=== PATIENT | female | born 1935 | race African-American/Black ===

== ENCOUNTER 2017-07-05 22:06 | Emergency (ER) | payer MEDICARE, MEDICAID ==
[~2017-07-05] VITALS: Ht 157.5 cm; Wt 69.1 kg
[~2017-07-05 22:06] MED LIST: ASPI81 PO; CARD240C6 PO; CLOP75 PO; HYDR-2768 PO; IMDU120T PO; LANTUSP SQ; LOTE20TA PO; METF500 PO; NITR0.4S SL; SIMV20 PO
[2017-07-05 22:07] VITALS: BP 178/78; PULSE 67; RESP 16; TEMP 98.5; O2SAT 96
--- NOTE | 2017-07-05 23:05 | PD ---
HPI Chief Complaint: Pain: Acute or Chronic Time Seen by Provider: 23:05 Travel History International Travel<30 days: No Contact w/Intl Traveler<30days: No Traveled to known affect area: No History of Present Illness HPI 81-year-old female came to the emergency room with history of right thumb swelling and pain. Patient says it's been going on for past 1 week but really painful today. No history of fever or chills. Patient is a diabetic. Bedside blood glucose was 177. Vital signs were stable. Patient is not sure how this could've started although she said she tried to cut a hangnail before the onset. PFSH Past Medical History Narrative Medical List of her past medical, surgical, social and family history reviewed from the nursing note. Hx Anticoagulant Therapy: Yes Anemia: Yes Arthritis: Yes Asthma: No Autoimmune Disease: No Blood Disorders: No Anxiety: No Depression: No Heart Rhythm Problems: No Cancer: No Cardiac Catheterization: Yes (STENT PLACEMENT) Cardiovascular Problems: Yes (CARDIAC STENTS) High Cholesterol: No Chemotherapy: No Chest Pain: Yes Congestive Heart Failure: No COPD: No Cerebrovascular Accident: No Coronary Artery Disease: Yes Diabetes: Yes Patient Takes Glucophage: No Diminished Hearing: No GERD: Yes Glaucoma: No Genitourinary: No Headaches: No Hepatitis: No Hiatal Hernia: No Heparin Induced Thrombocytopen: No Hypertension: Yes Immune Disorder: No Kidney Stones: No Neurologic: No Psychiatric: No Reproductive: No Respiratory: No Migraines: No Myocardial Infarction: Yes (X3) Radiation Therapy: No Renal Failure: No Seizures: No Sickle Cell Disease: No Sleep Apnea: No Thyroid Disease: No Ulcer: No Tetanus Vaccination: Unknown Influenza Vaccination: No Menopausal: Yes : 5 Para: 5 Past Surgical History Abdominal Surgery: No AICD: No Appendectomy: No Cardiac Surgery: Yes (CARDIAC CATH WITH STENT) Cholecystectomy: No Coronary Artery Bypass Graft: No Coronary Stent: Yes Ear Surgery: No Endocrine Surgery: No Eye Surgery: Yes (BILATERAL CATARACTS REMOVED. ) Genitourinary Surgery: No Gynecologic Surgery: Yes (ABDOMINAL HYSTERECTOMY) Hysterectomy: Yes Neurologic Surgery: No Oral Surgery: No Pacemaker: No Thoracic Surgery: No Other Surgery: Yes Family History Family Myocardial Infarction: Yes (MOTHER HAD CT AND ENLARGED HEART) Social History Alcohol Use: No Tobacco Use: No Substance Use: No Allergies-Medications (Allergen,Severity, Reaction): Coded Allergies: No Known Allergies (Verified Adverse Reaction, Unknown, 07/05/17) Comments No known drug allergies. Reported Meds & Prescriptions Reported Meds & Active Scripts Active Clindamycin (Clindamycin HCl) 150 Mg Cap 150 Mg PO Q6H 7 Days Reported Lantus (Insulin Glargine) 100 Units/Ml Inj 14 Units SQ HS Glucophage 500 mg (Metformin HCl) 500 Mg Tab 500 Mg PO DAILY Hctz (Hydrochlorothiazide) 25 Mg Tab 25 Mg PO DAILY Nitrostat (Nitroglycerin) 0.4 Mg Subl 0.4 Mg SL PRN 1 TAB SL EVERY 5 MINS X 3 PRN CHEST PAIN Aspirin 81 Mg Tab 81 Mg PO DAILY Lotensin (Benazepril HCl) 20 Mg Tab 20 Mg PO BID Cardizem Cd (Diltiazem HCl) 240 Mg Cap 240 Mg PO DAILY Plavix (Clopidogrel Bisulfate) 75 Mg Tab 75 Mg PO DAILY Imdur (Isosorbide Mononitrate) 120 Mg Tab 120 Mg PO DAILY Zocor (Simvastatin) 20 Mg Tab 20 Mg PO HS Narrative Medication List of her home medications reviewed from the nursing note. Review of Systems Except as stated in HPI: all other systems reviewed are Neg Physical Exam Narrative GENERAL: Awake, alert, looks younger than her age, mild distress SKIN: Focused skin assessment warm/dry. Right thumb radial aspect of the nail has swelling, tenderness. This is just adjacent to the nail bed HEAD: Atraumatic. Normocephalic. EYES: Pupils equal and round. No scleral icterus. No injection or drainage. ENT: No nasal bleeding or discharge. Mucous membranes pink and moist. NECK: Trachea midline. No JVD. CARDIOVASCULAR: Regular rate and rhythm. No murmur appreciated. RESPIRATORY: No accessory muscle use. Clear to auscultation. Breath sounds equal bilaterally. GASTROINTESTINAL: Abdomen soft, non-tender, nondistended. Hepatic and splenic margins not palpable. MUSCULOSKELETAL: No obvious deformities. No clubbing. No cyanosis. No edema. NEUROLOGICAL: Awake and alert. No obvious cranial nerve deficits. Motor grossly within normal limits. Normal speech. PSYCHIATRIC: Appropriate mood and affect; insight and judgment normal. Data Data Last Documented VS Vital Signs Date Time Temp Pulse Resp B/P (MAP) Pulse Ox O2 Delivery O2 Flow Rate FiO2 07/06/17 00:15 07/05/17 22:07 98.5 67 16 96 Room Air Orders Orders Lidocaine 1% Inj (50 Ml) (Xylocaine 1% I (07/05/17 23:15) Tetanus/Diphtheria Tox Adult (Tetanus/Di (07/05/17 23:15) Blood Glucose (07/05/17 23:09) Wound Culture And Gram Stain (07/05/17 23:41) Sulfamet-Trimeth Ds 800-160 Mg (Bactrim (07/06/17 00:00) Ed Discharge Order (07/05/17 23:59) Clindamycin (Cleocin) (07/06/17 00:15) [facility] Medical Decision Making Medical Screen Exam Complete: Yes Emergency Medical Condition: Yes Medical Record Reviewed: Yes Differential Diagnosis Paronychia Narrative Course 12:01 AM the paronychia was drained. Please refer to my procedure note. Patient tolerated the procedure well. She is given a dose of Bactrim and will be discharged home with instructions. Procedures Procedure Narrative Paronychia drainage: The thumb was cleaned with ChloraPrep. One percent lidocaine was used to achieve digital block. Total of 8 mL was infiltrated into the base of the thumb. Once desired anesthesia was achieved #11 scalpel blade was used to get to the radial corner of the thumbnail. Immediately pus came out. Culture was collected with swab. The medial corner of the nail was freed from the nailbed. More pus was extruded by pressure. Patient tolerated the procedure well. The and it was cleaned with Betadine and nurses applied dressing. EKG Prior to Arrival: No Diagnosis Primary Impression: Acute paronychia of right thumb Referrals: Primary Care Physician Additional Instructions: Return to the ER if the condition worsens or any other new concerns. Otherwise follow-up with your primary care next few days. Take the antibiotic as per the prescription direction. Soak the finger in Epsom salt with lukewarm water 4-5 times a day. Med/Other Pt SpecificInfo: Prescription(s) given Scripts Clindamycin (Clindamycin) 150 Mg Cap 150 MG PO Q6H for Infection for 7 Days, #28 CAP 0 Refills Prov: Marciano Wang MD 07/06/17 Disposition: 01 DISCHARGE HOME Condition: Stable Marciano Wang MD Jul 05, 2017 23:05
[2017-07-05] MEDS ORDERED: LIDOCAINE HCL 1% 50 ML VIAL INFIL ONE (23:15)
[2017-07-05] MEDS ORDERED: TETANUS/DIPHTHERIA TOXOID ADULT 0.5 ML VIAL IM ONE (23:15)
[2017-07-06] MEDS ORDERED: SULFAMETHOXAZOLE-TRIMETHOPRIM DS 800-160 MG TAB PO ONE
[2017-07-06] MEDS ORDERED: CLIN150C14 PO (00:03)
[2017-07-06] MEDS ORDERED: CLINDAMYCIN 150 MG CAP PO ONE (00:15)
== END 2017-07-06 00:19 | disposition home or self-care (01) ==
LOC: NEPD 22:06
DX: L03.011 Cellulitis of right finger (principal); B95.61 Methicillin susceptible Staphylococcus aureus infection as the cause of diseases classified elsewhere; E11.9 Type 2 diabetes mellitus without complications; I10 Essential (primary) hypertension; I25.10 Atherosclerotic heart disease of native coronary artery without angina pectoris; I25.2 Old myocardial infarction; Z23 Encounter for immunization; Z79.4 Long term (current) use of insulin
CPT/HCPCS: 10060; 86403; 87070; 87186; 90471; 90714

== ENCOUNTER 2017-12-24 21:17 | Emergency (ER) | payer MEDICARE, MEDICAID ==
[~2017-12-24 21:17] MED LIST changes: +CLIN150C14 PO
[2017-12-24 21:58] VITALS: BP 153/69; PULSE 56; RESP 16; TEMP 98.3; O2SAT 97
--- NOTE | 2017-12-24 23:30 | PD ---
HPI Chief Complaint: Oral / Dental Pain or Problem Time Seen by Provider: 23:11 Travel History International Travel<30 days: No Contact w/Intl Traveler<30days: No Traveled to known affect area: No History of Present Illness HPI Patient is a 82-year-old female who presents the emergency room with complaints of lower lip swelling. Patient reports that she had a dental procedure today which required that her tooth be numbed with lidocaine, reports that she ate right after her procedure and noticed increased swelling to her right lower lip. Patient here for evaluation of right lower lip swelling. PFSH Past Medical History Hx Anticoagulant Therapy: Yes Anemia: Yes Arthritis: Yes Asthma: No Autoimmune Disease: No Blood Disorders: No Anxiety: No Depression: No Heart Rhythm Problems: No Cancer: No Cardiac Catheterization: Yes (STENT PLACEMENT) Cardiovascular Problems: Yes (STENTS) High Cholesterol: No Chemotherapy: No Chest Pain: Yes Congestive Heart Failure: No COPD: No Cerebrovascular Accident: No Coronary Artery Disease: Yes Diabetes: Yes Diminished Hearing: No GERD: Yes Glaucoma: No Genitourinary: No Headaches: No Hepatitis: No Hiatal Hernia: No Heparin Induced Thrombocytopen: No Hypertension: Yes Immune Disorder: No Kidney Stones: No Neurologic: No Psychiatric: No Reproductive: No Respiratory: No Migraines: No Myocardial Infarction: Yes (X3) Radiation Therapy: No Renal Failure: No Seizures: No Sickle Cell Disease: No Sleep Apnea: No Thyroid Disease: No Ulcer: No Menopausal: Yes : 5 Para: 5 Past Surgical History Abdominal Surgery: No AICD: No Appendectomy: No Cardiac Surgery: Yes (CARDIAC CATH WITH STENT) Cholecystectomy: No Coronary Artery Bypass Graft: No Coronary Stent: Yes Ear Surgery: No Endocrine Surgery: No Eye Surgery: Yes (BILATERAL CATARACTS REMOVED. ) Genitourinary Surgery: No Gynecologic Surgery: Yes (ABDOMINAL HYSTERECTOMY) Hysterectomy: Yes Neurologic Surgery: No Oral Surgery: No Pacemaker: No Thoracic Surgery: No Other Surgery: Yes Social History Alcohol Use: No Tobacco Use: No Substance Use: No Allergies-Medications (Allergen,Severity, Reaction): Coded Allergies: No Known Allergies (Verified Adverse Reaction, Unknown, 12/24/17) Reported Meds & Prescriptions Reported Meds & Active Scripts Active Clindamycin (Clindamycin HCl) 150 Mg Cap 150 Mg PO Q6H 7 Days Reported Lantus (Insulin Glargine) 100 Units/Ml Inj 14 Units SQ HS Glucophage 500 mg (Metformin HCl) 500 Mg Tab 500 Mg PO DAILY Hctz (Hydrochlorothiazide) 25 Mg Tab 25 Mg PO DAILY Nitrostat (Nitroglycerin) 0.4 Mg Subl 0.4 Mg SL PRN 1 TAB SL EVERY 5 MINS X 3 PRN CHEST PAIN Aspirin 81 Mg Tab 81 Mg PO DAILY Lotensin (Benazepril HCl) 20 Mg Tab 20 Mg PO BID Cardizem Cd (Diltiazem HCl) 240 Mg Cap 240 Mg PO DAILY Plavix (Clopidogrel Bisulfate) 75 Mg Tab 75 Mg PO DAILY Imdur (Isosorbide Mononitrate) 120 Mg Tab 120 Mg PO DAILY Zocor (Simvastatin) 20 Mg Tab 20 Mg PO HS Review of Systems General / Constitutional: No: Fever Eyes: No: Visual changes HENT: Positive: Other (right lower lip swelling), No: Headaches Cardiovascular: No: Chest Pain or Discomfort Respiratory: No: Shortness of Breath Gastrointestinal: No: Abdominal Pain Genitourinary: No: Dysuria Musculoskeletal: No: Pain Skin: No Rash Neurologic: No: Weakness Psychiatric: No: Depression Endocrine: No: Polydipsia Hematologic/Lymphatic: No: Easy Bruising Physical Exam Narrative GENERAL: Well-nourished, well-developed patient. SKIN: Focused skin assessment warm/dry. HEAD: Normocephalic. EYES: No scleral icterus. No injection or drainage. MOUTH: patient with swelling to right lower lip, she does have bite rodriguez to her right inner mucosa of her mouth - there is cessation of bleeding at this time. NECK: Supple, trachea midline. No JVD or lymphadenopathy. CARDIOVASCULAR: Regular rate and rhythm without murmurs, gallops, or rubs. RESPIRATORY: Breath sounds equal bilaterally. No accessory muscle use. GASTROINTESTINAL: Abdomen soft, non-tender, nondistended. MUSCULOSKELETAL: No cyanosis, or edema. Data Data Last Documented VS Vital Signs Date Time Temp Pulse Resp B/P (MAP) Pulse Ox O2 Delivery O2 Flow Rate FiO2 12/24/17 21:58 98.3 56 16 153/69 (97) 97 [facility] Medical Decision Making Medical Screen Exam Complete: Yes Emergency Medical Condition: Yes Medical Record Reviewed: Yes Interpretation(s) Vital Signs Date Time Temp Pulse Resp B/P (MAP) Pulse Ox O2 Delivery O2 Flow Rate FiO2 12/24/17 21:58 98.3 56 16 153/69 (97) 97 Differential Diagnosis Angioedema, medication reaction, trauma Narrative Course 82-year-old female who had Novocaine injected prior to a dental procedure today , patient went home and ate a meal, patient with swelling to right lower lip. Patient is on IFTIKHAR inhibitor which could cause lower lip swelling/angioedema but this is probably not the case as she does appear to have obvious trauma to her right lower inner lip mucosal as patient most likely bit her lower lip while eating while numb on novacaine. Instructed patient that the next time she has novocaine, she should wait until the numbing solution wears off before she has a meal. Instructed patient to place ice pack to lower lip. Patient will return to ER if symptoms do not resolve. Diagnosis Primary Impression: Biting of oral mucosa Additional Instructions: Place ice pack to lower lip Return to ER if symptoms worsen or progress Return to ER as needed Disposition: 01 DISCHARGE HOME Condition: Stable Helen Baird DO Dec 24, 2017 23:30
== END 2017-12-24 23:52 | disposition home or self-care (01) ==
LOC: NEPD 21:17
DX: K13.1 Cheek and lip biting (principal); E11.9 Type 2 diabetes mellitus without complications; I10 Essential (primary) hypertension; I25.10 Atherosclerotic heart disease of native coronary artery without angina pectoris; Z79.4 Long term (current) use of insulin
CPT/HCPCS: 99282

== ENCOUNTER 2018-09-14 21:42 | Inpatient (IN) ==
[2018-09-14] MEDS ORDERED: Labetalol HCl Inj 100 MG/20 ML Vial IV.PUSH ONE (22:24)
--- NOTE | 2018-09-14 22:38 | ED ---
HPI General Chief complaint: Chest Pain Stated complaint: Generalized pain Time Seen by Provider: 09/14/18 22:13 Source: patient Limitations: no limitations History of Present Illness HPI narrative: The patient is an 83 year old female who presents to the [facility] emergency department with a history of a few hours ago after eating dinner having onset of midepigastric abdominal pain, abdominal bloating, and diffuse back pain. She reports having associated shortness of breath that comes and goes. She reports that the pain is constant in her abdomen and back although it waxes and wanes in severity. She reports having nausea without vomiting. She denies having any diaphoresis. She does report having history of coronary artery disease and has had 2 stents placed previously. She reports that her cone sewer is Dr. Irene Watson. She reports that she does take a low- dose aspirin daily. She denies being on any other blood thinners. The patient arrives with an extremely high blood pressure at 259/132. She reports that both of her blood pressure medications were discontinued 5 months ago. She reports that she stopped 1 due to a reaction where she developed swelling in her mouth. She reports that the other blood pressure medication was stopped by her when she developed "fluttering" in her heart. She has not been back to see her primary care physician regarding her blood pressure since stopping the medications. The stress test done approximately 6-7 months ago. The patient reports that she has had a hysterectomy, however she continues to have her gallbladder and appendix. She denies having any diarrhea. She reports that her last bowel movement was today. She reports that she did start a stool softener yesterday related to hard stools over the last week. She denies having any urinary symptoms. On review of systems otherwise, patient denies having any known recent fevers, cough, congestion, neck pain, chest pain, or neurologic symptoms. Related Data Home Medications Medication Instructions Recorded Confirmed Isosorbide 120 mg PO DAILY 09/14/18 ascorbic acid (vitamin C) [Vitamin 500 mg PO DAILY 09/14/18 09/14/18 C] aspirin 81 mg PO DAILY 09/14/18 09/14/18 clopidogrel 75 mg PO DAILY 09/14/18 09/14/18 diltiazem HCl [Matzim [place]] 240 mg PO DAILY 09/14/18 09/14/18 simvastatin 20 mg PO QPM 09/14/18 09/14/18 zolpidem 5 mg PO DAILY 09/14/18 09/14/18 Allergies Allergy/AdvReac Type Severity Reaction Status Date / Time No Known Allergies Allergy Verified 09/14/18 21:49 Review of Systems ROS: all other systems reviewed are negative PMFSH History History Provided By: Patient Medical History Medical History Diabetes (Acute) H/O: hysterectomy (Acute) Hypertension (Acute) Surgical History Surgical History H/O heart artery stent (Acute) Social History Social History Substance History: No History of Abuse Second Hand Smoke Exposure: No Smoking Status: Never smoker How Often Do You Have a Drink Containing Alcohol: Never Recent Travel in [facility] within the Last 8 Weeks: No Recent Out of Country Travel within the Last 8 Weeks: No Exam Const General: cooperative and acute distress (Uncomfortable appearing on my arrival to the room, frequently swallowing reporting nausea.) Nutritional Appearance: well nourished Orientation: alert, awake and oriented x3 HENMT Head: normocephalic and atraumatic Nose: no nasal discharge and no epistaxis Mouth: moist mucous membranes Throat: posterior oropharynx normal and uvula midline Eyes Sclera: normal sclerae Pupils: PERRL Neck Neck: no meningeal signs, trachea midline and no JVD Resp Effort & Inspection: no use of accessory muscles Auscultation: clear to auscultation bilaterally, no rales, no rhonchi and no wheezes Cardio Rate: regular rate Rhythm: regular rhythm Heart Sounds: no murmurs GI Inspection: non-distended Palpation: soft, no hepatosplenomegaly, no guarding, not rigid and nontender Auscultation: normal bowel sounds Back/Spine/Pelvis Back: no CVA tenderness Skin General: dry skin (warm) Neuro General: alert, awake, oriented x3 and other (Grossly nonfocal) Speech: speech normal Motor: no movement abnormalities noted Extrem General: normal to inspection (2+ pulses in all 4 extremities.), no calf tenderness, no clubbing, no cyanosis and no edema Psych Mood: congruent mood Affect: normal affect Judgment: judgment good Course Initial Documented Vital Signs Temperature 98.3 F 09/14/18 21:49 Pulse Rate 77 09/14/18 21:49 Respiratory Rate 29 H 09/14/18 21:49 Blood Pressure 243/114 H 09/14/18 21:49 Pulse Oximetry 99 09/14/18 21:49 Last Documented Vital Signs Temperature 98.3 F 09/14/18 21:49 Pulse Rate 79 09/15/18 03:34 Respiratory Rate 21 09/15/18 03:34 Blood Pressure 143/65 H 09/15/18 03:34 Pulse Oximetry 96 09/15/18 03:34 Medical Decision Making MDM Narrative Medical decision making narrative: During the course of the patient's emergency department visit, the patient's history, examination, and differential diagnosis were reviewed with the patient. The patient was placed on a desk monitor with oximetry and frequent blood pressure monitoring. The patient had IV access obtained and blood work sent for analysis. A diagnostic evaluation was started regarding the patient's abdominal pain and back pain associated with hypertension. The patient was initially provided labetalol 10 mg IV, nitroglycerin sublingual every 5 minutes x3 as needed chest pain or continued hypertension, nitroglycerin 1 inch to the chest wall. The patient was given Zofran 4 mg IV for nausea. The patient's diagnostic studies are remarkable for aCBC that is within normal limits, PT PTT within normal limits, d-dimer is elevated at 1.17, chemistries remarkable for creatinine 1.12, GFR 56, glucose 183, alkaline phosphatase 139, cardiac enzymes within normal limits, BNP within normal limits, total protein 8.3, lipase 147. The patient had a chest x-ray done that shows linear scarring or atelectasis of the lung bases, no effusion. A CT a of the thoracic abdominal aorta revealed no evidence of thoracic or abdominal aortic aneurysm or dissection, right basilar infiltrate noted, likely atelectasis, extensive diverticulosis without diverticulitis, gallbladder is mildly dilated and contains stones, multiple hepatic low densities that are likely benign, large hiatal hernia. The patient was provided famotidine 20 mg IV. The patient continued to be hypertensive and was started on Cardene as a drip. The patient's case including history, pertinent physical examination findings, and laboratory studies were discussed with Dr. Maurice. It was agreed that the patient would be admitted to the hospitalist service. The patient's results were discussed with the patient, including the plan of care. I explained that further testing and/ or monitoring is indicated based on the patient's history, examination, and/ or laboratory findings. Therefore, I recommended admission for additional evaluation. The patient expressed understanding and was agreeable with this plan. The patient was admitted to the hospital in stable condition and sent to a bed under the care of the [facility] service. Medical Screen Exam Complete: Yes Emergency Medical Condition: Yes Differential Diagnosis Differential Diagnosis: Aortic dissection, versus acute coronary syndrome, versus pancreatitis, versus acute cholecystitis Medical Records Medical records reviewed: Yes I reviewed the patient's medical records. Lab Data Lab results reviewed: Yes I reviewed the patient's lab results. Result diagrams: 09/14/18 22:23 09/14/18 22:23 Lab Results 09/14/18 09/14/18 09/14/18 Range/Units 22:23 22:23 22:23 WBC 6.1 (4.0-11.0) th/mm3 RBC 4.79 (4.00-5.30) mil/mm3 Hgb 14.9 (11.6-15.3) gm/dL Hct 42.9 (35.0-46.0) % MCV 89.5 (80.0-100.0) fL MCH 31.2 (27.0-34.0) pg MCHC 34.8 (32.0-36.0) % RDW 14.8 (11.6-17.2) % Plt Count 234 (150-450) th/mm3 MPV 8.1 (7.0-11.0) fL Neut % (Auto) 48.1 (16.0-70.0) % Lymph % (Auto) 43.9 (9.0-44.0) % Blanco % (Auto) 6.5 (0.0-8.0) % Eos % (Auto) 1.0 (0.0-4.0) % Baso % (Auto) 0.5 (0.0-2.0) % Neut # (Auto) 3.0 (1.8-7.7) th/mm3 Lymph # (Auto) 2.7 (1.0-4.8) th/mm3 Blanco # (Auto) 0.4 (0.0-0.9) th/mm3 Eos # (Auto) 0.1 (0.0-0.4) th/mm3 Baso # (Auto) 0.0 (0.0-0.2) th/mm3 WBC Differential . Differential Comment Auto diff final PT (9.8-11.6) sec INR Ratio APTT (23.4-31.7) sec D-Dimer Quant (PE/DVT) (0.00-0.50) mg/L FEU Sodium 138 (136-145) meq/L Potassium 3.9 (3.5-5.1) meq/L Chloride 104 (98-107) meq/L Carbon Dioxide 27.1 (21.0-32.0) meq/L Anion Gap 7 (5-15) meq/L BUN 15 (7-18) mg/dL Creatinine 1.12 H (0.50-1.00) mg/dL Estimated GFR 56 L (>89) mL/min Random Glucose 183 H (74-106) mg/dL Calcium 9.5 (8.5-10.1) mg/dL Magnesium 2.3 (1.5-2.5) mg/dL Total Bilirubin 0.3 (0.2-1.0) mg/dL AST 23 (15-37) U/L ALT 22 (10-53) U/L Alkaline Phosphatase 139 H (45-117) U/L Total Creatine Kinase 133 (26-192) U/L CK-MB (CK-2) 1.5 (0.5-3.6) ng/mL Troponin I Less than 0.02 L (0.02-0.05) ng/mL B-Natriuretic Peptide 31 (0-100) pg/mL Total Protein 8.3 H (6.4-8.2) g/dL Albumin 4.0 (3.4-5.0) g/dL Lipase 147 (73-393) U/L 09/14/18 09/15/18 Range/Units 22:23 02:58 WBC (4.0-11.0) th/mm3 RBC (4.00-5.30) mil/mm3 Hgb (11.6-15.3) gm/dL Hct (35.0-46.0) % MCV (80.0-100.0) fL MCH (27.0-34.0) pg MCHC (32.0-36.0) % RDW (11.6-17.2) % Plt Count (150-450) th/mm3 MPV (7.0-11.0) fL Neut % (Auto) (16.0-70.0) % Lymph % (Auto) (9.0-44.0) % Blanco % (Auto) (0.0-8.0) % Eos % (Auto) (0.0-4.0) % Baso % (Auto) (0.0-2.0) % Neut # (Auto) (1.8-7.7) th/mm3 Lymph # (Auto) (1.0-4.8) th/mm3 Blanco # (Auto) (0.0-0.9) th/mm3 Eos # (Auto) (0.0-0.4) th/mm3 Baso # (Auto) (0.0-0.2) th/mm3 WBC Differential Differential Comment PT 10.0 (9.8-11.6) sec INR 1.0 Ratio APTT 25.7 (23.4-31.7) sec D-Dimer Quant (PE/DVT) 1.17 H (0.00-0.50) mg/L FEU Sodium (136-145) meq/L Potassium (3.5-5.1) meq/L Chloride (98-107) meq/L Carbon Dioxide (21.0-32.0) meq/L Anion Gap (5-15) meq/L BUN (7-18) mg/dL Creatinine (0.50-1.00) mg/dL Estimated GFR (>89) mL/min Random Glucose (74-106) mg/dL Calcium (8.5-10.1) mg/dL Magnesium (1.5-2.5) mg/dL Total Bilirubin (0.2-1.0) mg/dL AST (15-37) U/L ALT (10-53) U/L Alkaline Phosphatase (45-117) U/L Total Creatine Kinase (26-192) U/L CK-MB (CK-2) (0.5-3.6) ng/mL Troponin I Less than 0.02 L (0.02-0.05) ng/mL B-Natriuretic Peptide (0-100) pg/mL Total Protein (6.4-8.2) g/dL Albumin (3.4-5.0) g/dL Lipase (73-393) U/L Imaging Data Radiologist's impression: Chest X-Ray 09/14/18 22:16 CONCLUSION: Linear scarring or atelectasis at the lung bases. No effusion. Thoracic Aorta CT 09/14/18 22:16 CONCLUSION: 1. Right basilar infiltrate. 2. No thoracic or abdominal aortic aneurysm/dissection. 3. Extensive diverticulosis without diverticulitis. 4. Gallbladder is mildly dilated and contains gallstones. 5. Multiple hepatic low densities likely benign. 6. Large hiatal hernia. Gallbladder Ultrasound 09/15/18 01:28 CONCLUSION: 1. Cholelithiasis, gallbladder sludge and pericholecystic fluid. 2. Multiple hepatic cysts. ECG Data Attestation: I personally reviewed and interpreted this ECG as follows: Interpretation: The patient had an EKG done on arrival. The patient's EKG reveals a sinus rhythm heart rate of 69, left ventricular hypertrophy is noted. Nonspecific ST-T wave abnormalities are noted. T waves are inverted in lead I , aVL, V4, V5, V6. No acute ST segment elevation. Discharge Plan Discharge Disposition Patient Disposition: ED Admit(ED Internal Use Only) Discharge Order Discharge Orders: ED Use Only Admit Order (Routine); Ordered 09/15/18 Ordered By: Ruma Yung Discharge Details Diagnosis: Hypertensive urgency, Chest pain, rule out acute myocardial infarction Physicians Team ED Provider: Ruma Yung Primary Care Provider: SURI Robins Attending Provider: Carolyn Pelletier Other Providers: [facility],Insurance Status ED Status: Admitted Patient
[2018-09-14] MEDS ORDERED: Labetalol HCl Inj 20 MG/4 ML Vial ONE (22:40)
[2018-09-14] MEDS ORDERED: Labetalol HCl Inj 20 MG/4 ML Vial IV.PUSH ONE (22:45)
--- NOTE | 2018-09-14 22:46 | XR ---
EXAM DATE: 09/14/2018 10:37 PM EST AGE/SEX: 83 years / Female INDICATIONS: Chest pain CLINICAL DATA: This is the patient's initial encounter. Patient reports that signs and symptoms have been present for 1 day and indicates a pain score of 0/10. MEDICAL/SURGICAL HISTORY: Diabetes mellitus type II. Cardiovascular disease. Carotid stent. COMPARISON: [facility] – [place], CHEST SINGLE AP, 12/29/2015. . FINDINGS: There is linear atelectasis or scarring at the lung bases. No effusion. No pneumothorax. Heart size w ithin normal limits. CONCLUSION: Linear scarring or atelectasis at the lung bases. No effusion. Electronically signed by: Bishnu Pritchett MD Board Certified Radiologist 09/14/2018 10:44 PM EST
[2018-09-14 22:49] LABS: Baso % (Auto) 0.5 % (0.0-2.0); Eos # (Auto) 0.1 th/mm3 (0.0-0.4); Hematocrit 42.9 % (35.0-46.0); Hemoglobin 14.9 gm/dL (11.6-15.3); Lymph # (Auto) 2.7 th/mm3 (1.0-4.8); Lymph % (Auto) 43.9 % (9.0-44.0); Mean Corpuscular HGB Conc 34.8 % (32.0-36.0); Mean Corpuscular Hemoglobin 31.2 pg (27.0-34.0); Mean Corpuscular Volume 89.5 fL (80.0-100.0); Mean Platelet Volume 8.1 fL (7.0-11.0); Mono # (Auto) 0.4 th/mm3 (0.0-0.9); Mono % (Auto) 6.5 % (0.0-8.0); Neut % (Auto) 48.1 % (16.0-70.0); Platelet Count 234 th/mm3 (150-450); Red Blood Count 4.79 mil/mm3 (4.00-5.30); Red Cell Distribution Width 14.8 % (11.6-17.2); White Blood Count 6.1 th/mm3 (4.0-11.0)
[2018-09-14 23:06] LABS: Activated Partial Thrombo Time 25.7 sec (23.4-31.7)
[2018-09-14 23:10] LABS: Alanine Aminotransferase 22 U/L (10-53); Alkaline Phosphatase 139 U/L (45-117); Anion Gap 7 meq/L (5-15); Aspartate Aminotransferase 23 U/L (15-37); Blood Urea Nitrogen 15 mg/dL (7-18); Calcium 9.5 mg/dL (8.5-10.1); Carbon Dioxide 27.1 meq/L (21.0-32.0); Chloride 104 meq/L (98-107); Creatine Kinase 133 U/L (26-192); Glomerular Filtration Rate 56 mL/min (>89); Glucose,Random 183 mg/dL (74-106); Lipase 147 U/L (73-393); Magnesium 2.3 mg/dL (1.5-2.5); Sodium 138 meq/L (136-145); Total Protein 8.3 g/dL (6.4-8.2)
[2018-09-14 23:14] LABS: D-Dimer 1.17 mg/L FEU (0.00-0.50)
[2018-09-14 23:19] LABS: Potassium 3.9 meq/L (3.5-5.1)
[2018-09-14 23:31] LABS: Creatine Kinase MB 1.5 ng/mL (0.5-3.6)
[2018-09-15] MEDS ORDERED: niCARdipine Inj 25 MG in Sodium Chlor 0.9% Inj 240 ML IV.CONT PRN (00:01)
--- NOTE | 2018-09-15 00:35 | CT ---
EXAM DATE: 09/15/2018 12:23 AM EST AGE/SEX: 83 years / Female INDICATIONS: Chest and abdominal pain with nausea. CLINICAL DATA: This is the patient's initial encounter. Patient reports that signs and symptoms have been present for 1 day and indicates a pain score of 10/10. MEDICAL/SURGICAL HISTORY: Cardiovascular disease. Diabetes. Hypertension. Coronary artery stent. Hysterectomy. RADIATION DOSE: 7.88 CTDI (mGy) COMPARISON: No prior exams available for comparison. TECHNIQUE: Volumetric scanning was performed using a multi-row detector CT scanner during bolus infu alphonse of 98 ml Omnipaque 350 (iohexol) nonionic water-soluble contrast as a single exam dose. The da ta was post processed with a variety of visualization algorithms including full volume maximum intens ity projection, multi-planar sliding thin slab reformation, curved planar reformation, and surface re ndering techniques. Using automated exposure control and adjustment of the mA and/or kV according to patient size, radiation dose was kept as low as reasonably achievable to obtain optimal diagnostic q uality images. DICOM format image data is available electronically for review and comparison. FINDINGS: Lungs: There is right basilar infiltrate. No concerning pulmonary nodule is visualized. No pleural fluid is present. Mediastinum: No abnormally enlarged lymph nodes by CT criteria. No axillary or hilar abnormalities a re identified. Heterogeneous thyroid gland. Abdomen: The spleen are free of focal defects. Multiple hepatic low densities. The pancreas demonstr ate no abnormality. Gallbladder is dilated and contains small gallstones. The adrenal glands are norm al. The kidneys demonstrate no evidence of solid renal mass or hydronephrosis. No free fluid or abdom inal masses are identified. No para-aortic adenopathy is seen. Large hiatal hernia. Extensive diverti culosis of the colon. Pelvis: No evidence of free fluid or pelvic mass. No abnormally enlarged inguinal or retroperitoneal lymph nodes are present. The bladder is unremarkable. Thoracic Aorta: The thoracic aortic root is normal with normal branching of the great vessels. Ther e is no evidence of aneurysm or dissection. Abdominal Aorta: The aorta is normal in caliber without aneurysm or dissection. The renal arteries are patent bilaterally. The proximal celiac and superior mesenteric arteries are patent and normal i n diameter. Pelvic Vessels: The internal iliac and external iliac vessels are patent without aneurysm or stenosi s. CONCLUSION: 1. Right basilar infiltrate. 2. No thoracic or abdominal aortic aneurysm/dissection. 3. Extensive diverticulosis without diverticulitis. 4. Gallbladder is mildly dilated and contains gallstones. 5. Multiple hepatic low densities likely benign. 6. Large hiatal hernia. Electronically signed by: Vj Smith MD Board Certified Radiologist 09/15/2018 12:34 AM EST
[2018-09-15] MEDS ORDERED: Famotidine PF Inj 20 MG/2 ML Vial IV.PUSH ONE (01:28)
[2018-09-15] MEDS ORDERED: Acetaminophen 325 MG Tablet PO PRN (01:41)
[2018-09-15] MEDS ORDERED: Bisacodyl 10 MG Supp RECTAL PRN (01:41)
--- NOTE | 2018-09-15 02:54 | US ---
EXAM DATE: 09/15/2018 2:48 AM EST AGE/SEX: 83 years / Female INDICATIONS: Epigastric pain with nausea. Follow up gallstones visualized on CTA Thoracic/Abdominal Aorta with contrast. CLINICAL DATA: This is the patient's initial encounter. Patient reports that signs and symptoms have been present for 1 day and indicates a pain score of 10/10. MEDICAL/SURGICAL HISTORY: Diabetes. Hypertension. Cardiovascular disease. Coronary artery manpreet nt. Hysterectomy. COMPARISON: [facility], CTA THOR ABD AORTA W CONTRAST W 3D, 09/14/2018. . MEASUREMENTS: Liver:__ 11.8 cm. Common Bile Duct:__ 11mm. FINDINGS: Liver: Normal echogenicity. Multiple cysts are seen. Portal Vein: Hepatopedal flow seen in portal vein. Common Duct: No intraluminal mass or stone visualized. Gallbladder: Gallstones and sludge. Pericholecystic fluid present. Negative sonographic Renee's sig n. Pancreas: The visualized portions are within normal limits Right Kidney: Normal echogenicity and cortical thickness. No mass or hydronephrosis. Other: None. CONCLUSION: 1. Cholelithiasis, gallbladder sludge and pericholecystic fluid. 2. Multiple hepatic cysts. Electronically signed by: Vj Smith MD Board Certified Radiologist 09/15/2018 2:53 AM EST
--- NOTE | 2018-09-15 09:18 | NM ---
EXAM DATE: 09/15/2018 9:11 AM EST AGE/SEX: 83 years / Female INDICATIONS: Dyspnea. CLINICAL DATA: This is the patient's initial encounter. Patient reports that signs and symptoms have been present for 1 day and indicates a pain score of 5/10. MEDICAL/SURGICAL HISTORY: Diabetes mellitus type II. Hypertension. Coronary artery stent. COMPARISON: [facility], CHEST 1V SINGLE AP, 09/14/2018. . DOSE: 0.5 mCi Tc99m DTPA aerosol 8.1 mCi Tc99m MAA IV TECHNIQUE: Following five minutes of tidal breathing of DTPA aerosol, planar images of the lungs wer e performed in eight projections. The patient was then injected with MAA, and eight-view perfusion s can was performed. FINDINGS: There is a heterogeneous pattern of aerosol delivery to the periphery of both lungs with patchy subse gmental defects most notably in the left upper and lower lobes. The perfusion lung scan demonstrates a homogenous pattern of uptake in both lungs. No segmental or s ubsegmental defects are seen. CONCLUSION: 1. Very low probability VQ scan. Electronically signed by: Jerald Duggan MD Board Certified Radiologist 09/15/2018 9:17 AM EST
[2018-09-15] MEDS: Enoxaparin Inj 30 MG/0.3 ML Syringe SQ SCH (10:12)
[2018-09-15] MEDS: dilTIAZem CD 240 MG Capsule PO SCH (10:12)
[2018-09-15] MEDS: Isosorbide Mononitrate 60 MG ER 24HR Tablet (Imdur) PO SCH (10:50)
--- NOTE | 2018-09-15 11:10 | P.HPIM ---
History of Present Illness Primary Care Physician: [facility] – [place] History of Present Illness: 83 yo F with h/o CAD,HTN, who presented with abdominal and back pain which started after eating dinner. Pain was said to be in the epigastric area, sharp, associated with bloating, no known relieving factors. She vomited a few times, but did not have any diarrhea. She had taken a stool softener yesterday because she had not had a bowel movement, but managed to move after that. No chest pain or shortness of breath. No leg swelling. No dizziness or lightheadedness. No headaches. ROS is negative except as stated above. ER notes indicate bp meds were stopped 5 months ago, on interviewing patient, says she takes all her medication including BP medication. She had a list which she showed to me. On presentation was noted to be have very high BP 259/132, CT chest/abdopelvis r /o dissection/aneurism, showed a right basilar infiltrate, diverticulosis, mildly dilated gall bladder with gall stones, multiple hepatic low densities likely benign. Patient was initially on a Nicardipin drip, BP trends improved. Her home medication have been resumed. Inpatient Certification Inpatient Certification: I certify that the inpatient services were ordered in accordance with Medicare regulations governing the order. This includes certification that hospital inpatient services are reasonable and necessary and in the case of services not specified as inpatient-only under 42 CFR 419.22(n), that they are appropriately provided as inpatient services in accordance to with the 2-midnight benchmark under 43 CFR 412.3(e) Estimated Total Length of Stay (Days): 2 Plans for Post Hospital Care: Home Review of Systems Review of Systems: all other systems reviewed are negative [facility] Medical History Medical History Diabetes (Acute) H/O: hysterectomy (Acute) Hypertension (Acute) Surgical History Surgical History H/O heart artery stent (Acute) Social History Social History Substance History: No History of Abuse Second Hand Smoke Exposure: No Smoking Status: Never smoker How Often Do You Have a Drink Containing Alcohol: Never Recent Travel in [place] within the Last 8 Weeks: No Recent Out of Country Travel within the Last 8 Weeks: No Immunization History Tetanus Immunization: >5 Years Medications and Allergies Allergies Allergy/AdvReac Type Severity Reaction Status Date / Time No Known Allergies Allergy Verified 09/14/18 21:49 Home Medications Medication Instructions Recorded Confirmed Type Isosorbide 120 mg PO DAILY 09/14/18 History ascorbic acid (vitamin C) [Vitamin 500 mg PO DAILY 09/14/18 09/14/18 History C] aspirin 81 mg PO DAILY 09/14/18 09/14/18 History clopidogrel 75 mg PO DAILY 09/14/18 09/14/18 History diltiazem HCl [Matzim LA] 240 mg PO DAILY 09/14/18 09/14/18 History simvastatin 20 mg PO QPM 09/14/18 09/14/18 History zolpidem 5 mg PO DAILY 09/14/18 09/14/18 History Active Medications: Active Medications Acetaminophen (Tylenol) 650 mg PO Q4H PRN PRN Reason: Temp > 100.4 Al Hydroxide/Mg Hydroxide (Milk Of Magnesia Liq) 30 ml PO Q12H PRN PRN Reason: Mild Constipation Aspirin (Aspirin Chew) 81 mg PO DAILY [facility] Last Admin: 09/15/18 10:11 Dose: 81 mg Bisacodyl (Dulcolax Supp) 10 mg RECTAL DAILY PRN PRN Reason: SEVERE CONSITIPATION Clopidogrel Bisulfate (Plavix) 75 mg PO DAILY [facility] Last Admin: 09/15/18 10:13 Dose: 75 mg Diltiazem HCl (Cardizem Cd 24hr) 240 mg PO DAILY [facility] Last Admin: 09/15/18 10:12 Dose: 240 mg Enoxaparin Sodium (Lovenox Inj) 30 mg SQ Q24H [facility] Last Admin: 09/15/18 10:12 Dose: 30 mg Nicardipine HCl 25 mg/ Sodium (Chloride) 250 mls @ 50 mls/hr IV.CONT TITRATE PRN; Protocol PRN Reason: Per Protocol Last Titration: 09/15/18 05:02 Dose: Infused Isosorbide Mononitrate (Imdur) 120 mg PO DAILY [facility] Last Admin: 09/15/18 10:50 Dose: 120 mg Lactulose (Lactulose Liq) 30 ml PO DAILY PRN PRN Reason: SEVERE CONSITIPATION Ondansetron HCl (Zofran Inj) 4 mg IV.PUSH Q6H PRN PRN Reason: NAUSEA OR VOMITING Pravastatin Sodium (Pravachol) 40 mg PO HS [facility] Sennosides (Senokot) 17.2 mg PO Q12H PRN PRN Reason: Moderate Constipation Sodium Chloride (Ns Flush) 2 ml IV.FLUSH UNSCH PRN PRN Reason: FLUSH AFTER USING IV ACCESS Sodium Chloride (Ns Flush) 2 ml IV.FLUSH BID [facility] Last Admin: 09/15/18 10:13 Dose: 2 ml Sodium Chloride (Ns Flush) 2 ml IV.FLUSH PRN PRN PRN Reason: FLUSH AFTER USING IV ACCESS Physical Exam Vital signs: Vital Signs 09/14/18 21:49 09/14/18 22:34 09/14/18 22:46 Temperature 98.3 F Pulse Rate 77 72 Respiratory Rate 29 H 18 Blood Pressure 243/114 H 197/91 H Pulse Oximetry 99 98 97 09/14/18 23:02 09/15/18 00:20 09/15/18 00:54 Temperature Pulse Rate 74 74 80 Respiratory Rate 18 18 19 Blood Pressure 220/97 H 210/91 H 167/72 H Pulse Oximetry 99 97 100 09/15/18 02:01 09/15/18 03:34 09/15/18 07:00 Temperature Pulse Rate 77 79 76 Respiratory Rate 20 21 25 H Blood Pressure 154/70 H 143/65 H 172/81 H Pulse Oximetry 96 99 09/15/18 08:00 09/15/18 09:40 09/15/18 10:00 Temperature Pulse Rate 74 79 83 Respiratory Rate 22 18 16 Blood Pressure 164/77 H 175/80 H 153/118 H Pulse Oximetry 100 100 Intake & Output 09/14/18 09/15/18 09/15/18 18:59 06:59 18:59 Intake Total 250 / 250 Balance 250 / 250 Weight 68.039 kg Intake: IV 250 / 250 Cardene Inj 25 MG In NS Inj 240 250 / 250 ML @ 5 MG/HR 50 mls/hr IV.CONT TITRATE PRN Rx#:[id number] Narrative: GENERAL: elderly woman, not in distress. HEENT:not pale,anicteric NECK:no JVD CARDIOVASCULAR: Regular rate and rhythm,RUSB soft 2/6 systolic murmur, gallops, or rubs. RESPIRATORY: Clear to auscultation. Breath sounds equal bilaterally. No wheezes , rales, or rhonchi. GASTROINTESTINAL: Abdomen soft, non-tender, nondistended. Normal active bowel sounds MUSCULOSKELETAL: Extremities without clubbing, cyanosis, or edema. NEURO: Alert & Oriented x4 to person, place, time, situation. Moves all ext x4 Results Labs CBC & Chem 7: 09/14/18 22:23 09/16/18 04:42 Imaging Impressions Chest X-Ray 09/14/18 22:16 CONCLUSION: Linear scarring or atelectasis at the lung bases. No effusion. Thoracic Aorta CT 09/14/18 22:16 CONCLUSION: 1. Right basilar infiltrate. 2. No thoracic or abdominal aortic aneurysm/dissection. 3. Extensive diverticulosis without diverticulitis. 4. Gallbladder is mildly dilated and contains gallstones. 5. Multiple hepatic low densities likely benign. 6. Large hiatal hernia. Gallbladder Ultrasound 09/15/18 01:28 CONCLUSION: 1. Cholelithiasis, gallbladder sludge and pericholecystic fluid. 2. Multiple hepatic cysts. Pulmonary Perfusion Imaging 09/15/18 01:38 CONCLUSION: 1. Very low probability VQ scan. Caprini VTE Risk Assessment Caprini VTE Risk Assessment: No/Low Risk (score <= 1) Caprini Risk Assessment Model: Point Value = 1 Point Value = 2 Point Value = 3 Point Value = 5 Age 41-60 Minor surgery BMI > 25 kg/m2 Swollen legs Varicose veins or History of unexplained or recurrent spontaneous Oral contraceptives or hormone replacement Sepsis (< 1 month) Serious lung disease, including pneumonia (< 1 month) Abnormal pulmonary function Acute myocardial infarction Congestive heart failure (< 1 month) History of inflammatory bowel disease Medical patient at bed rest Age 61-74 Arthroscopic surgery Major open surgery (> 45 min) Laparoscopic surgery (> 45 min) Malignancy Confined to bed (> 72 hours) Immobilizing plaster cast Central venous access Age >= 75 History of VTE Family history of VTE Factor V Leiden Prothrombin [id number] Lupus anticoagulant Anticardiolipin antibodies Elevated serum homocysteine Heparin-induced thrombocytopenia Other congenital or acquired thrombophilia Stroke (< 1 month) Elective arthroplasty Hip, pelvis, or leg fracture Acute spinal cord injury (< 1 month) Prophylaxis Regimen: Total Risk Factor Score Risk Level Prophylaxis Regimen 0-1 Low Early ambulation 2 Moderate Order ONE of the following: *Sequential Compression Device (SCD) *Heparin 5000 units SQ BID 3-4 Higher Order ONE of the following medications: *Heparin 5000 units SQ TID *Enoxaparin/Lovenox 40 mg SQ daily (WT < 150 kg, CrCl > 30 mL/min) *Enoxaparin/Lovenox 30 mg SQ daily (WT < 150 kg, CrCl > 10-29 mL/min) *Enoxaparin/Lovenox 30 mg SQ BID (WT < 150 kg, CrCl > 30 mL/min) AND/OR *Sequential Compression Device (SCD) 5 or more Highest Order ONE of the following medications: *Heparin 5000 units SQ TID (Preferred with Epidurals) *Enoxaparin/Lovenox 40 mg SQ daily (WT < 150 kg, CrCl > 30 mL/min) *Enoxaparin/Lovenox 30 mg SQ daily (WT < 150 kg, CrCl > 10-29 mL/min) *Enoxaparin/Lovenox 30 mg SQ BID (WT < 150 kg, CrCl > 30 mL/min) AND *Sequential Compression Device (SCD) Assessment and Plan Plan 83 yo F with h/o CAD, HTN, who presented with abdominal pain, was found to have HTN urgency. HTN urgency- received Nicardipine drip in ER, BP trends improving, now usual home medication have been resumed, monitor closely. Abdominal pain-now resolved,liver enzymes were unremarkable except for mildly elevated ALKP. bili not elevated. CT without evidence of dissection or aneurism. Incidental findings of gall stones without obstruction or cholecystitis. It does not seem like she passed any stone given no elevation of enzymes or bili. can f/up as outpatient. RLL infiltrate-treat as community acquired pneumonia. start Levofloxacin orally. Elevated Cr CAD,reports stents 15 years ago, troponin negative on admission. resumed ASA/ Plavix. DVT ppx with heparin sq.
[2018-09-15 12:45] VITALS: RESP 18
[2018-09-15] MEDS: levoFLOXacin 750 MG Tablet PO SCH (13:05)
--- NOTE | 2018-09-15 20:17 | ECG ---
Date Performed: 09/14/2018 Time Performed: 22:01:24 PTAGE: 83 years EKG: Sinus rhythm LEFT VENTRICULAR HYPERTROPHY AND ST-T CHANGE ABNORMAL ECG PREVIOUS TRACING 02/10/2014 @ 10.34.58 Since the previous tracing, no significant change noted DOCTOR: Junior Horn Interpretating Date/Time 09/15/2018 20:16:28
--- NOTE | 2018-09-15 20:18 | ECG ---
Date Performed: 09/15/2018 Time Performed: 09:52:50 PTAGE: 83 years EKG: Sinus rhythm LEFT VENTRICULAR HYPERTROPHY AND ST-T CHANGE ABNORMAL ECG PREVIOUS TRACING : 09/15/2018 04.09 Since the previous tracing, no significant change noted DOCTOR: Junior Horn Interpretating Date/Time 09/15/2018 20:17:13
--- NOTE | 2018-09-15 20:18 | ECG ---
Date Performed: 09/15/2018 Time Performed: 04:09:14 PTAGE: 83 years EKG: Sinus rhythm LEFT VENTRICULAR HYPERTROPHY AND ST-T CHANGE ABNORMAL ECG PREVIOUS TRACING : 09/14/2018 22.01 Since the previous tracing, no significant change noted DOCTOR: Junior Horn Interpretating Date/Time 09/15/2018 20:16:52
[2018-09-15] MEDS: Insulin NovoLOG Aspart Correctional Sugar Inj SQ SCH (20:24)
[2018-09-15 21:59] VITALS: O2SAT 99
[2018-09-16 05:44] LABS: Calcium 9.2 mg/dL (8.5-10.1); Carbon Dioxide 27.2 meq/L (21.0-32.0); Potassium 3.8 meq/L (3.5-5.1)
--- NOTE | 2018-09-16 08:59 | P.PNIM ---
Subjective Interval history: feeling well,abdominal pain has subsided and she tolerated diet well. Physical Exam Vital signs: Vital Signs 09/15/18 09:40 09/15/18 10:00 09/15/18 12:00 Temperature 97.5 F L Pulse Rate 79 83 76 Respiratory Rate 18 16 18 Blood Pressure 175/80 H 153/118 H 163/81 H Pulse Oximetry 100 100 99 09/15/18 16:00 09/15/18 19:00 09/15/18 20:00 Temperature 99.0 F 99.4 F Pulse Rate 69 65 68 Respiratory Rate 18 18 Blood Pressure 134/66 144/77 H Pulse Oximetry 96 99 09/15/18 23:00 09/16/18 00:00 09/16/18 03:00 Temperature 99 F Pulse Rate 67 73 62 Respiratory Rate 18 Blood Pressure 124/71 Pulse Oximetry 99 09/16/18 03:43 Temperature 98.5 F Pulse Rate 77 Respiratory Rate 18 Blood Pressure 142/70 H Pulse Oximetry 99 Intake & Output 09/15/18 09/16/18 09/16/18 18:59 06:59 18:59 Intake Total 640 / 640 240 / 240 Balance 640 / 640 240 / 240 Weight 69 kg Intake: Oral 640 / 640 240 / 240 Other: # Voids 4 1 Narrative: GENERAL: elderly woman, not in distress. HEENT:not pale,anicteric NECK:no JVD CARDIOVASCULAR: Regular rate and rhythm,RUSB soft 2/6 systolic murmur, gallops, or rubs. RESPIRATORY: Clear to auscultation. Breath sounds equal bilaterally. No wheezes , rales, or rhonchi. GASTROINTESTINAL: Abdomen soft, non-tender, nondistended. Normal active bowel sounds MUSCULOSKELETAL: Extremities without clubbing, cyanosis, or edema. NEURO: Alert & Oriented x4 to person, place, time, situation. Moves all ext x4 Results Labs CBC & Chem 7: 09/14/18 22:23 09/16/18 04:42 Imaging Imaging: Impressions Pulmonary Perfusion Imaging 09/15/18 01:38 CONCLUSION: 1. Very low probability VQ scan. Assessment and Plan Plan 83 yo F with h/o CAD, HTN, who presented with abdominal pain, was found to have HTN urgency. HTN urgency- received Nicardipine drip in ER, BP trends improving.continued usual home medication. Abdominal pain-now resolved. liver enzymes were unremarkable except for mildly elevated ALKP. bili not elevated. CT without evidence of dissection or aneurism. Incidental findings of gall stones without obstruction or cholecystitis. It does not seem like she passed any stone given no elevation of enzymes or bili. can f/up as outpatient. RLL infiltrate-treat as community acquired pneumonia. Patient was started Levofloxacin for a total of 7 days. Acute kidney injury- Cr 1.12 on admission,likely pre renal in the setting of vomiting. Cr trended down to 0.97 CAD,reports stents 15 years ago, troponin negative on admission. resumed ASA/ Plavix. DVT ppx with heparin sq. PATIENT IS MEDICALLY READY FOR DISCHARGE.
--- NOTE | 2018-09-16 09:01 | P.DS ---
DS: Providers Date of admission: 09/15/18 01:46 Primary care physician: SURI [facility] [place] Consults: 09/15/18 02:43 HUB Only Consult Order Routine Consulting Provider: [facility],Insurance Brief History from admission: 83 yo F with h/o CAD,HTN, who presented with abdominal and back pain which started after eating dinner. Pain was said to be in the epigastric area, sharp, associated with bloating, no known relieving factors. She vomited a few times, but did not have any diarrhea. She had taken a stool softener yesterday because she had not had a bowel movement, but managed to move after that. No chest pain or shortness of breath. No leg swelling. No dizziness or lightheadedness. No headaches. ROS is negative except as stated above. ER notes indicate bp meds were stopped 5 months ago, on interviewing patient, says she takes all her medication including BP medication. She had a list which she showed to me. On presentation was noted to be have very high BP 259/132, CT chest/abdopelvis r /o dissection/aneurism, showed a right basilar infiltrate, diverticulosis, mildly dilated gall bladder with gall stones, multiple hepatic low densities likely benign. Patient was initially on a Nicardipin drip, BP trends improved. Her home medication have been resumed. DS: Summary 83 yo F with h/o CAD, HTN, who presented with abdominal pain, was found to have HTN urgency. HTN urgency- received Nicardipine drip in ER, BP trends improved to systolic range of 120's to 140.continued usual home medication while hospitalized. Patient can follow up with her PCP for titration if need be. Abdominal pain-now resolved. liver enzymes were unremarkable except for mildly elevated ALKP. bili not elevated. CT without evidence of dissection or aneurism. Incidental findings of gall stones without obstruction or cholecystitis. It does not seem like she passed any stone given no elevation of enzymes or bili. can f/up as outpatient. RLL infiltrate-treat as community acquired pneumonia. Patient was started Levofloxacin for a total of 7 days. Acute kidney injury- Cr 1.12 on admission,likely pre renal in the setting of vomiting. Cr trended down to 0.97 CAD,reports stents 15 years ago, troponin negative on admission. resumed ASA/ Plavix. patient has been advised to follow up with her PCP within a week for re- evaluation. PATIENT IS MEDICALLY READY FOR DISCHARGE TO HOME. Time Spent with Patient Total time spent providing and/or coordinating discharge services:>30 minutes. Results Labs on day of discharge: Labs from last 24 hours 09/16/18 09/16/18 09/15/18 08:22 04:42 19:59 Sodium 138 Potassium 3.8 Chloride 104 Carbon Dioxide 27.2 Anion Gap 7 BUN 12 Creatinine 0.97 Estimated GFR 66 L POC Glucose 167 H 161 H Random Glucose 169 H Calcium 9.2 Troponin I 09/15/18 09/15/18 11:23 09:45 Sodium Potassium Chloride Carbon Dioxide Anion Gap BUN Creatinine Estimated GFR POC Glucose 277 H Random Glucose Calcium Troponin I Less than 0.02 L Impressions ITS Impressions Chest X-Ray 09/14/18 22:16 CONCLUSION: Linear scarring or atelectasis at the lung bases. No effusion. Thoracic Aorta CT 09/14/18 22:16 CONCLUSION: 1. Right basilar infiltrate. 2. No thoracic or abdominal aortic aneurysm/dissection. 3. Extensive diverticulosis without diverticulitis. 4. Gallbladder is mildly dilated and contains gallstones. 5. Multiple hepatic low densities likely benign. 6. Large hiatal hernia. Gallbladder Ultrasound 09/15/18 01:28 CONCLUSION: 1. Cholelithiasis, gallbladder sludge and pericholecystic fluid. 2. Multiple hepatic cysts. Pulmonary Perfusion Imaging 09/15/18 01:38 CONCLUSION: 1. Very low probability VQ scan. Discharge Plan Discharge Disposition Patient Disposition: Discharge Home Discharge Order Discharge Orders: Discharge Order (Routine); Ordered 09/16/18 Ordered By: Carolyn Pelletier Discharge Details Anticipated Discharge Date: 09/16/18 Physicians Team Primary Care Provider: SURI Robins Attending Provider: Carolyn Pelletier Other Providers: [facility],Insurance Rxs /Orders / Referrals /Forms Prescriptions: New levofloxacin 750 mg Tablet 750 mg PO DAILY 6 Days Qty: 6 RF: 0 Continue clopidogrel 75 mg Tablet 75 mg PO DAILY RF: 0 simvastatin 20 mg Tablet 20 mg PO QPM RF: 0 Isosorbide 120 mg PO DAILY RF: 0 ascorbic acid (vitamin C) [Vitamin C] 500 mg Capsule, Extended Release 500 mg PO DAILY RF: 0 aspirin 81 mg Tablet,Chewable 81 mg PO DAILY RF: 0 zolpidem 5 mg Tablet 5 mg PO DAILY RF: 0 diltiazem HCl [Matzim LA] 240 mg Tablet Extended Release 24 Hr 240 mg PO DAILY RF: 0 Referrals: Salud Chance MD [Family Provider] - See Instructions SURI Robins [Primary Care Provider] - See Instructions Discharge Instructions Patient Printed Instructions: Chest Pain (ED) Status ED Status: Left Department
[2018-09-16] MEDS: dilTIAZem CD 240 MG Capsule PO SCH (09:40)
[2018-09-16] MEDS: Enoxaparin Inj 30 MG/0.3 ML Syringe SQ SCH (09:40)
[2018-09-16] MEDS: Insulin NovoLOG Aspart Correctional Sugar Inj SQ SCH (09:41)
[2018-09-16] MEDS: levoFLOXacin 750 MG Tablet PO SCH (09:41)
[2018-09-16] MEDS: Isosorbide Mononitrate 60 MG ER 24HR Tablet (Imdur) PO SCH (09:41)
[2018-09-16 10:20] VITALS: BP 120/78; PULSE 72; TEMP 98.3
== END 2018-09-16 11:34 | disposition home or self-care (01) | DRG 304 ==
LOC: NEPD 21:42 → NEDA 09-15 01:46 → NEDH 09-15 04:51 → HCIS 09-15 11:09
PROVIDERS: ADMIT Hospitalist; ATTEND Hospitalist
CPT/HCPCS: 71010; 71045; 71275; 74175; 76705; 78582; 80048; 80053; 82550; 82552; 82948; 82962; 83520; 83690; 83735; 83880; 84484; 85025; 85379; 85610; 85730; 90774; 90775; 90776; 90784; 93005; 96374; 96375; 96376; 99285; A9519; A9540; A9567; C1094; C8952; J1650; J1815; J2405; J7050; Q9967